=== PATIENT | male | born 1960 | race Two or more races ===

== ENCOUNTER 2017-07-26 14:59 | Emergency (ER) | payer OTHER ==
[~2017-07-26] VITALS: Ht 167.6 cm; Wt 97.5 kg
[2017-07-26 15:12] VITALS: BP 152/93; Ht 167.6 cm; Wt 97.5 kg
== END 2017-07-26 18:35 | disposition home or self-care (01) ==
LOC: ED 14:59
DX: L98.9 Disorder of the skin and subcutaneous tissue, unspecified (principal); R51 Headache